=== PATIENT | male | born 1970 | race Two or more races ===

== ENCOUNTER 2018-02-20 16:55 | Emergency (ER) | payer BC ==
[2018-02-20] MEDS ORDERED: Ondansetron ODT TAB* 4 MG PO ONE (16:57)
[2018-02-20] MEDS ORDERED: Tenofovir/Emtricitab 200/300 * TAB PO ONE (16:57)
[2018-02-20] MEDS ORDERED: Raltegravir* 400 MG TAB PO ONE (16:57)
--- NOTE | 2018-02-20 17:04 | ED ---
- HPI Summary HPI Summary: This patient is a 48 year old M presenting to [facility] accompanied by with a chief complaint of needle stick in R thumb at 1555. It was a solid suture needle already used on the person he was suturing. He denies concern for risk factors with the suturee, he consented to blood test. PMHx HTN. He claims that the needle went into his thumb on one side but there was no exit wound. He agrees to prophylactic tx. - History of Current Complaint Stated Complaint: EXPOSURE Date of Incident: 02/20/18 Time of Incident: 15:55 Job Performing at Time of Incident: suturing Needlestick: Solid Needle Blood on Needle: Yes - had been previously used on pt Depth of Needlestick: Puncture Bleeding at Site: Yes - drop Body Fluid Exposure: Blood Treatment DOOR CLAMPER: Cleaned Wound - Source Information HIV: No Hepatitis: No PMH/Surg Hx/FS Hx/Imm Hx Endocrine/Hematology History: Denies: Hx Sickle Cell Disease Cardiovascular History: Reports: Hx Hypertension Respiratory History: Denies: Hx Lung Cancer GI History: Denies: Hx Ileostomy History: Denies: Hx Dialysis Musculoskeletal History: Denies: Hx Osteoporosis Sensory History: Reports: Hx Contacts or Glasses Denies: Hx Deafness Opthamlomology History: Reports: Hx Contacts or Glasses EENT History: Denies: Hx Deafness Neurological History: Denies: Hx Dementia Psychiatric History: Denies: Hx Schizophrenia - Family History Known Family History: Negative: Blood Disorder - Social History Occupation: Employed Full-time Review of Systems Negative: Fever, Chills Negative: Erythema Negative: Sore Throat Negative: Chest Pain Negative: Shortness Of Breath, Cough Negative: Abdominal Pain, Vomiting, Nausea Negative: dysuria, flank pain Negative: Myalgia, Edema Positive: Other - puncture wound from needlestick in L thumb. Negative: Rash Neurological: Other - NEGATIVE: dizziness All Other Systems Reviewed And Are Negative: Yes Physical Exam - Summary Physical Exam Summary: Constitutional: Well-developed, Well-nourished, Alert. (-) Distressed Skin: Warm, Dry, no visible puncture wound HENT: Normocephalic; Atraumatic Eyes: Conjunctiva normal Neck: Musculoskeletal ROM normal neck. (-) JVD, (-) Stridor, (-) Tracheal deviation Cardio: Rhythm regular, rate normal, Heart sounds normal; Intact distal pulses; The pedal pulses are 2+ and symmetric. Radial pulses are 2+ and symmetric. (-) Murmur Pulmonary/Chest wall: Effort normal. (-) Respiratory distress, (-) Wheezes, (-) Rales Abd: Soft, (-) epigastric tenderness, (-) Distension, (-) Guarding, (-) Rebound Musculoskeletal: (-) Edema Lymph: (-) Cervical adenopathy Neuro: Alert, Oriented x3 Psych: Mood and affect Normal Triage Information Reviewed: Yes Vital Signs Reviewed: Yes Needlestick Course/Dx - Course Course Of Treatment: A 48-year-old M presents to the ED with a CC of needlestick in left thumb at 1555. (+) solid needle, already used on pt he had just sutured, minimal bleeding. (-) [id number], known source HIV, hepatitis. The source patient consented to blood test. In the ED course, pt was given zofran isentress, and truvada. Pt labs show (-) HIV. Source pt was (-) for HIV and hepatitis. - Diagnoses Provider Diagnoses: Needlestick injury accident Discharge - Sign-Out/Discharge Documenting (check all that apply): Patient Departure - discharge - Discharge Plan Condition: Stable Disposition: HOME Patient Education Materials: Needle Stick Injuries (ED) Referrals: Graciela Flood MD [Primary Care Provider] - Additional Instructions: Follow up with [facility], as seen on the form you filled out, in 1 to 2 weeks. Return to the emergency department for any new or worsening symptoms. - Attestation Statements Document Initiated by Scribe: Yes Documenting Scribe: Richie Melvin Provider For Whom Scribe is Documenting (Include Credential): Dr. Peter Luis MD Scribe Attestation: Richie Donovan, scribed for Dr. Peter Luis MD on 02/20/18 at 1838.
[2018-02-20 17:05] VITALS: BP 165/116
== END 2018-02-20 17:36 | disposition home or self-care (01) ==
LOC: ED 16:55
DX: S61.031A Puncture wound without foreign body of right thumb without damage to nail, initial encounter (principal); W46.1XXA Contact with contaminated hypodermic needle, initial encounter; Y93.89 Activity, other specified; Y92.9 Unspecified place or not applicable; Y99.0 Civilian activity done for income or pay
CPT/HCPCS: 36415; 86703; 86706; 86803; 87340; 99281